=== PATIENT | male | born 1935 | race Caucasian/White ===

== ENCOUNTER 2018-07-18 19:14 | Inpatient (IN) | payer MEDICARE, OTHER ==
[~2018-07-18] VITALS: Ht 182.9 cm; Wt 79.8 kg
[2018-07-18] MEDS ORDERED: ASPIR 8181 MG PO (19:32)
[2018-07-18 19:35] LABS: BASOPHILS % 0.1 % (0.0-1.0); EOSINOPHILS # (AUTO) 0.1 (0.0-0.4); EOSINOPHILS % 0.8 % (0.0-6.0); HEMATOCRIT 32.3 % (38.2-49.6); HEMOGLOBIN 11.6 g/dL (14.0-18.0); LYMPHOCYTES # (AUTO) 0.3 (1.0-3.2); LYMPHOCYTES % 3.9 % (18.0-39.1); MEAN CORPUSCULAR HEMOGLOBIN 33.5 pg (28-32); MEAN CORPUSCULAR HGB CONC 35.9 g/dL (31-35); MEAN CORPUSCULAR VOLUME 93.4 fL (81-99); MONOCYTES # (AUTO) 1.7 (0.2-0.8); MONOCYTES % 19.4 % (4.4-11.3); NEUTROPHILS # (AUTO) 6.6 (2.1-6.9); NEUTROPHILS % 75.3 % (38.7-80.0); PLATELET COUNT 237 x10e3/uL (140-360); RED BLOOD COUNT 3.46 x10e6/uL (4.3-5.7); RED CELL DISTRIBUTION WIDTH 12.5 % (11.7-14.4)
[2018-07-18 19:55] LABS: BILIRUBIN,URINE NEGATIVE (NEGATIVE); CLARITY,URINE SL CLOUDY (CLEAR); COLOR,URINE YELLOW (YELLOW); KETONES,URINE NEGATIVE (NEGATIVE); LEUKOCYTE ESTERASE ,URINE NEGATIVE (NEGATIVE); NITRITE,URINE NEGATIVE (NEGATIVE); PROTEIN,URINE DIPSTICK TRACE (NEGATIVE); URINE UROBILINOGEN 0.2 mg/dL (0.2 - 1)
[2018-07-18 19:56] LABS: ALANINE AMINOTRANSFERASE 16 IU/L (0-55); ALBUMIN 2.7 g/dL (3.5-5.0); ALBUMIN/GLOBULIN RATIO 0.7 (0.8-2.0); ALKALINE PHOSPHATASE 90 IU/L (40-150); ANION GAP 12.9 mmol/L (8-16); BLOOD UREA NITROGEN 15 mg/dL (7-26); BUN/CREATININE RATIO 17 (6-25); CALCIUM 10.2 mg/dL (8.4-10.2); CARBON DIOXIDE 25 mmol/L (22-29); CHLORIDE 86 mmol/L (98-107); CREATINE KINASE 151 IU/L (30-200); CREATININE, SERUM 0.87 mg/dL (0.72-1.25); EST GLOMERULAR FILTRATION RATE > 60 ML/MIN (60-); GLUCOSE 99 mg/dL (74-118); POTASSIUM 3.9 mmol/L (3.5-5.1); SODIUM 120 mmol/L (136-145)
[2018-07-18 19:57] LABS: B-TYPE NATRIURETIC PEPTIDE2 174.5 pg/mL (0-100)
[2018-07-18 20:04] LABS: BACTERIA,URINE MODERATE /HPF
--- NOTE | 2018-07-18 20:09 | Diagnostic Imaging Report ---
ADDENDUM #1 Incidental finding: Moderate mucosal thickening in bilateral ethmoid, left sphenoid and visualized portion of maxillary sinuses. I have reviewed the images and otherwise agree with findings in the preliminary report. Signed by: Dr. Kristin Figueroa M.D. on 07/18/2018 9:13 PM ORIGINAL REPORT Exam: Noncontrast Head CT History: 83-year-old male with generalized weakness for 3 days Comparison studies: None Technique: Axial images were obtained from the skull base to the vertex. Coronal and sagittal reconstructions obtained from the axial data. Dose modulation, iterative reconstruction, and/or weight based adjustment of the mA/kV was utilized to reduce the radiation dose to as low as reasonably achievable. Findings: Scalp/skull: No abnormalities. No fractures, blastic or lytic lesions. Extra-axial spaces: No masses. No fluid collections. Brain sulci: Mildly prominent. Ventricles: Mildly prominent. No hydrocephalus. Parenchyma: Few scattered white matter hypodensities which are nonspecific, however likely represent microvascular ischemic changes.. No masses, hemorrhage, acute or chronic cortical vascular insults. Sellar/suprasellar region: No abnormalities Craniocervical junction: Patent foramen magnum. No Chiari one malformation. IMPRESSION: No acute abnormalities. Chronic findings: Mild generalized volume loss. Mild white matter microvascular ischemic changes. Report dictated by neuroradiology fellow. Final read to follow. Signed by: Ian Worley MD on 07/18/2018 8:06 PM
--- NOTE | 2018-07-18 20:32 | Diagnostic Imaging Report ---
A single frontal view of the chest. HISTORY: sob, weakness COMPARISON: None available. DISCUSSION: Portable technique, limits sensitivity of the exam. Overlying monitoring leads. Tubes/Lines: None Lungs and pleura: Low lung volumes result in bibasilar vascular crowding, accentuation of the pulmonary interstitial markings, central pulmonary vasculature, and the cardiac silhouette. Allowing for these limitations, the findings are as follows: Patchy interstitial and airspace opacities involving the left lower lung and right infrahilar region. No definite pleural effusion or pneumothorax is identified. Heart and mediastinum: The cardiomediastinal silhouette appears unremarkable. Bones and soft tissues: Appear unremarkable, given this limited exam. IMPRESSION: Left greater than right bibasilar interstitial and airspace opacities, correlate for multifocal pneumonia or aspiration. Signed by: Dr. Juilen Lemon D.O., M.M.M. on 07/18/2018 8:28 PM
--- OUTSIDE RECORDS SUMMARY | 2018-07-18 20:44 | XMS REPORT ---
Author Author [facility] Address Unknown Phone Unavailable Care Team Providers Care Substitute Bus Driver Name Role Phone Owen YEN Unavailable Unavailable Problems This patient has no known problems. Allergies, Adverse Reactions, Alerts This patient has no known allergies or adverse reactions. Medications This patient has no known medications. Results Test Description Test Time Test Comments Text Results Atomic Results Result Comments CHEST SINGLE (PORTABLE) 2018-07-18 20:14:00 [place] [address] Patient Name: ROBINSON RIZZO MR #: [id number] : 1935 Age/Sex: 83/M Req #: [id number] Adm Physician: Ordered by: GILBERTO YEN MD Report #: [id number] Location: ER Room/Bed: Procedure: [id number] DX/CHEST SINGLE (PORTABLE) Exam Date: 07/18/18 Exam Time: 1954 REPORT STATUS: Signed A single frontal view of the chest. HISTORY: sob, weakness COMPARISON: None available. DISCUSSION: Portable technique, limits sensitivity of the exam. Overlying monitoring leads. Tubes/Lines: None Lungs and pleura: Low lung volumes result in bibasilar vascular crowding, accentuation of the pulmonary interstitial markings, central pulmonary vasculature, and the cardiac silhouette. Allowing for these limitations, the findings are as follows: Patchy interstitial and airspace opacities involving the left lower lung and right infrahilar region. No definite pleural effusion or pneumothorax is identified. Heart and mediastinum: The cardiomediastinal silhouette appears unremarkable. Bones and soft tissues: Appear unremarkable, given this limited exam. IMPRESSION: Left greater than right bibasilar interstitial and airspace opacities, correlate for multifocal pneumonia or aspiration. Signed by: Dr. Ashley Lemon D.O., M.M.M. on 07/18/2018 8:28 PM Dictated By: ASHLEY LEMON DO 27 Transcribed By: RICKY on 07/18/182027 COPY TO: GILBERTO YEN MD CT BRAIN WO 2018-07-18 20:03:00 [place] [address] Patient Name: ROBINSON RIZZO MR #: [id number] : 1935 Age/Sex: 83/M Req #: [id number] Adm Physician: Ordered by: GILBERTO YEN MD Report #: [id number] Location: ER Room/Bed: Procedure: [id number] CT/CT BRAIN WO Exam Date: 07/18/18 Exam Time: 1944 REPORT STATUS: Signed Exam: Noncontrast Head CT History: 83-year-old male with generalized weakness for 3 days Comparison studies: None Technique: Axial images were obtained from the skull base to the vertex. Coronal and sagittal reconstructions obtained from the axial data. Dose modulation, iterative reconstruction, and/or weight based adjustment of the mA/kV was utilized to reduce the radiation dose to as low as reasonably achievable. Findings: Scalp/skull: No abnormalities. No fractures, blastic or lytic lesions. Extra-axial spaces: No masses. No fluid collections. Brain sulci: Mildly prominent. Ventricles: Mildly prominent. No hydrocephalus. Parenchyma: Few scattered white matter hypodensities which are nonspecific, however likely represent microvascular ischemic changes.. No masses, hemorrhage, acute or chronic cortical vascular insults. Sellar/suprasellar region: No abnormalities Craniocervical junction: Patent foramen magnum. No Chiari one malformation. IMPRESSION: No acute abnormalities. Chronic findings: Mild generalized volume loss. Mild white matter microvascular ischemic changes. Report dictated by neuroradiology fellow. Final read to follow. Signed by: Ian Worley MD on 07/18/2018 8:06 PM Dictated By: MINDA WORLEY MD 05 Transcribed By: RICKY on 07/18/182005 COPY TO: GILBERTO YEN MD
[2018-07-18] MEDS ORDERED: LEVOFLOXACIN 750MG/D5W 150ML IV SCH (20:45)
[2018-07-18] MEDS: ALBUTEROL SULF 0.083% NEB SOLN 3 ML NEB NEB SCH (20:45)
[2018-07-18] MEDS: LEVOFLOXACIN 750MG/D5W 150ML 150 ML IV SCH (21:01)
[2018-07-18 21:40] VITALS: BP 133/62
[2018-07-18 22:07] VITALS: BP 133/62
[2018-07-18] MEDS: SODIUM CHLORIDE 0.9% 1000ML 1,000 ML IV SCH (22:28)
[2018-07-18] MEDS: BENZONATATE 100 MG CAP PO PRN (22:40)
[2018-07-18] MEDS: ACETAMINOPHEN 325 MG TAB PO PRN (22:41)
[2018-07-19] VITALS (9 sets, daily range): BP systolic 92–138; BP diastolic 53–61
[2018-07-19] MEDS: ALBUTEROL SULF 0.083% NEB SOLN 3 ML NEB NEB SCH ×6 (00:30→20:02)
[2018-07-19] MEDS: IPRATROPIUM BROMIDE 0.02% 2.5 ML NEB NEB SCH ×4 (00:30→20:02)
--- NOTE | 2018-07-19 03:41 | NUR ---
Patient is upset he has not slept. Patient on IV fluid and has to urinate frequently. Patient does not want bed alarm on explained to patient he is a fall risk and the bed alarm must remain on. Patient is also upset with breathing treatment and says "all they do is make me cough more". Explained to patient he has pneumonia and breathing treatments are beneficial to his recovery. Will continue to educate patient.
[2018-07-19 05:16] LABS: BASOPHILS % 0.2 % (0.0-1.0); EOSINOPHILS # (AUTO) 0.1 (0.0-0.4); EOSINOPHILS % 1.4 % (0.0-6.0); HEMATOCRIT 30.6 % (38.2-49.6); HEMOGLOBIN 10.8 g/dL (14.0-18.0); LYMPHOCYTES # (AUTO) 0.5 (1.0-3.2); LYMPHOCYTES % 6.2 % (18.0-39.1); MEAN CORPUSCULAR HGB CONC 35.3 g/dL (31-35); MEAN CORPUSCULAR VOLUME 93.6 fL (81-99); MONOCYTES # (AUTO) 1.8 (0.2-0.8); MONOCYTES % 20.3 % (4.4-11.3); NEUTROPHILS # (AUTO) 6.2 (2.1-6.9); NEUTROPHILS % 71.3 % (38.7-80.0); PLATELET COUNT 228 x10e3/uL (140-360); RED BLOOD COUNT 3.27 x10e6/uL (4.3-5.7); RED CELL DISTRIBUTION WIDTH 12.3 % (11.7-14.4)
[2018-07-19 05:38] LABS: ALANINE AMINOTRANSFERASE 14 IU/L (0-55); ALBUMIN 2.3 g/dL (3.5-5.0); ALBUMIN/GLOBULIN RATIO 0.7 (0.8-2.0); ALKALINE PHOSPHATASE 80 IU/L (40-150); ANION GAP 10.5 mmol/L (8-16); BLOOD UREA NITROGEN 12 mg/dL (7-26); BUN/CREATININE RATIO 17 (6-25); CALCIUM 9.6 mg/dL (8.4-10.2); CARBON DIOXIDE 25 mmol/L (22-29); CHLORIDE 90 mmol/L (98-107); CREATININE, SERUM 0.72 mg/dL (0.72-1.25); EST GLOMERULAR FILTRATION RATE > 60 ML/MIN (60-); GLUCOSE 91 mg/dL (74-118); POTASSIUM 3.5 mmol/L (3.5-5.1); SODIUM 122 mmol/L (136-145)
[2018-07-19 05:51] LABS: CREATINE KINASE 152 IU/L (30-200)
[2018-07-19 07:14] LABS: EOSINOPHILS % (MANUAL) 1 % (0-7); LYMPHOCYTES % (MANUAL) 9 % (19-48); MONOCYTES % (MANUAL) 23 % (3.4-9.0); NEUTROPHILS % (MANUAL) 66 % (40-74); PLATELET ESTIMATE ADEQUATE
[2018-07-19 07:15] LABS: PLATELET MORPHOLOGY COMMENT FEW EDTA CLUMPING; RBC MORPHOLOGY COMMENT NORMAL; TOXIC GRANULATION SLIGHT
[2018-07-19] MEDS: SODIUM CHLORIDE 0.9% 1000ML 1,000 ML IV SCH ×2 (07:17→16:30)
[2018-07-19] MEDS: ASPIRIN 81 MG CHEW TAB PO SCH (08:47)
[2018-07-19] MEDS: METRONIDAZOLE 500MG/NS 100ML 100 ML IV SCH ×2 (11:04→17:22)
--- NOTE | 2018-07-19 11:50 | Diagnostic Imaging Report ---
EXAMINATION: CT scan of the chest without contrast. TECHNIQUE: Helical CT images of the chest were performed from the lung apices to the level of the adrenal glands. No intravenous contrast was administered Coronal and sagittal reformatted images were obtained. Dose modulation, iterative reconstruction, and/or weight based adjustment of the mA/kV was utilized to reduce the radiation dose to as low as reasonably achievable. COMPARISON: None. CLINICAL HISTORY:Pneumonia DISCUSSION: ABSENCE OF INTRAVENOUS CONTRAST DECREASES SENSITIVITY FOR DETECTION OF FOCAL LESIONS AND VASCULAR PATHOLOGY. LINES/TUBES: None. LUNGS AND AIRWAYS: Interlobular thickening. Bilateral lower lobe dependent consolidation/atelectasis and additional tree-in-bud opacities. Right upper lobe nodule image 44 measuring 1.1 cm. PLEURA: Small effusions, greater on the left. HEART AND MEDIASTINUM: The thyroid gland is normal. Coronary artery calcifications. LYMPH NODES: There is no mediastinal, hilar or axillary lymphadenopathy. ABDOMEN: Limited contrast-enhanced views of the upper abdomen show no abnormality within the visualized liver, spleen, pancreas, or kidneys. The adrenal glands are normal. BONES AND SOFT TISSUES: No acute bony abnormalities. IMPRESSION: Lower lobe dependent consolidations may reflect atelectasis or pneumonia. Additional tree-in-bud nodularity/bronchiolitis, may be infectious or secondary to aspiration. Small effusions, greater on the left. Right upper lobe 1.1 cm nodule Signed by: Dr. Paulino Mckeon M.D. on 07/19/2018 11:46 AM
[2018-07-19] MEDS: BENZONATATE 100 MG CAP PO PRN ×2 (12:34→20:23)
[2018-07-19 13:58] LABS: CREATINE KINASE MB 2.3 ng/mL (0-5.0)
[2018-07-19] MEDS: TOBRAMYCIN 0.3% (OPTH) 5 ML BTL OP SCH ×2 (16:58→20:23)
--- NOTE | 2018-07-19 17:20 | History and Physical ---
PRIMARY CARE PHYSICIAN: Dr. Reymundo Siddiqui. CHIEF COMPLAINT: Multifocal pneumonia. HISTORY: The patient is an 83-year-old male, complained of not feeling well for the past week, worse for the past three days with fever, chills, and a runny nose. The patient came in with chest x-ray showed multilobar pneumonia. The patient is admitted for pneumonia treatment. He has been placed on Levaquin. He is allergic to sulfa, penicillin, and morphine. PAST MEDICAL HISTORY: Coronary artery disease, hypertension. PAST SURGICAL HISTORY: Hernia repair. SOCIAL HISTORY: The patient does not smoke or use alcohol. No recreational drug use. ALLERGIES: MORPHINE, SULFA, AND PENICILLIN. HOME MEDICATIONS: Aspirin. PHYSICAL EXAMINATION: VITAL SIGNS: Temperature is 99, blood pressure 92/53, pulse rate 65, and respiration 18. GENERAL: The patient is not in acute distress. He is awake. HEENT: Normocephalic and atraumatic. Anicteric. NECK: Supple grossly. PULMONARY: Diminished breath sounds bilaterally with coarse rales. CARDIOVASCULAR: S1, S2. Regular rate and rhythm. ABDOMEN: Soft. Positive bowel sounds. Grossly nontender and nondistended. EXTREMITIES: No gross cyanosis or edema. NEUROLOGIC: No gross focal deficit. LABORATORY DATA: Sodium is 120, potassium is 3.9, chloride 86, bicarb 25, BUN is 15, creatinine 0.8, and glucose is 99. WBC is 8.7, hemoglobin 11.6, hematocrit 32.3, and platelet is 237. A brain CT, no acute abnormality. Chest x-ray showed left greater than right basilar interstitial and airspace opacity, correlate with multifocal pneumonia. IMPRESSION: 1. Sepsis without shock. 2. Multifocal pneumonia. 3. Multiple upper respiratory symptoms. 4. Hyponatremia secondary to sepsis and infection with over drinking of water instead of eating. PLAN: Continue with antibiotics. Normal saline. Continue with home medications if any. DVT prophylaxis. We will monitor the patient closely. We will obtain a CT scan to better document the extensiveness of the infection. MD VERONICA Culp/TIFFANIE /[id number]
[2018-07-19] MEDS: ENOXAPARIN SOD INJ 40 MG/0.4 ML SYR SC SCH (17:22)
--- NOTE | 2018-07-19 17:34 | NUR ---
patient encouraged to ambulate as tolerated. patient unsure wether he wants to stating he will then stating "maybe I''ll hold off." at bedside agreed to walk with him in hallway and patient agreed. noted ambulating in hallway with at side. nonslip socks on.
[2018-07-19] MEDS: LEVOFLOXACIN 750MG/D5W 150ML 150 ML IV SCH (20:23)
[2018-07-20] VITALS (8 sets, daily range): BP systolic 107–153; BP diastolic 56–71
[2018-07-20] MEDS: SODIUM CHLORIDE 0.9% 1000ML 1,000 ML IV SCH ×2 (01:07→12:35)
[2018-07-20] MEDS: METRONIDAZOLE 500MG/NS 100ML 100 ML IV SCH ×3 (01:38→16:22)
[2018-07-20] MEDS: ALBUTEROL SULF 0.083% NEB SOLN 3 ML NEB NEB SCH ×2 (03:19→07:44)
[2018-07-20] MEDS: IPRATROPIUM BROMIDE 0.02% 2.5 ML NEB NEB SCH ×2 (03:19→07:44)
[2018-07-20 05:32] LABS: BASOPHILS % 0.3 % (0.0-1.0); EOSINOPHILS # (AUTO) 0.1 (0.0-0.4); EOSINOPHILS % 1.5 % (0.0-6.0); LYMPHOCYTES # (AUTO) 0.5 (1.0-3.2); LYMPHOCYTES % 7.7 % (18.0-39.1); MEAN CORPUSCULAR HEMOGLOBIN 32.5 pg (28-32); MEAN CORPUSCULAR HGB CONC 34.5 g/dL (31-35); MEAN CORPUSCULAR VOLUME 94.2 fL (81-99); MONOCYTES % 14.5 % (4.4-11.3); NEUTROPHILS # (AUTO) 5.1 (2.1-6.9); NEUTROPHILS % 75.4 % (38.7-80.0); PLATELET COUNT 213 x10e3/uL (140-360); RED BLOOD COUNT 3.08 x10e6/uL (4.3-5.7); RED CELL DISTRIBUTION WIDTH 12.3 % (11.7-14.4)
[2018-07-20 05:58] LABS: ANION GAP 10.2 mmol/L (8-16); BLOOD UREA NITROGEN 10 mg/dL (7-26); BUN/CREATININE RATIO 15 (6-25); CALCIUM 8.8 mg/dL (8.4-10.2); CARBON DIOXIDE 22 mmol/L (22-29); CHLORIDE 91 mmol/L (98-107); CREATININE, SERUM 0.65 mg/dL (0.72-1.25); EST GLOMERULAR FILTRATION RATE > 60 ML/MIN (60-); GLUCOSE 98 mg/dL (74-118); POTASSIUM 3.2 mmol/L (3.5-5.1); SODIUM 120 mmol/L (136-145)
[2018-07-20] MEDS: TOBRAMYCIN 0.3% (OPTH) 5 ML BTL OP SCH ×3 (06:07→21:00)
[2018-07-20] MEDS: BENZONATATE 100 MG CAP PO PRN ×2 (06:07→10:32)
[2018-07-20 06:13] LABS: MAGNESIUM 1.7 MG/DL (1.3-2.1); PHOSPHORUS 2.8 MG/DL (2.3-4.7)
[2018-07-20 06:33] LABS: FOLATE 15.6 ng/mL (7.0-15.4)
[2018-07-20 06:35] LABS: THYROID STIMULATING HORMONE 1.312 uIU/mL (0.350-4.940)
--- NOTE | 2018-07-20 07:30 | NUR ---
PT IS SITTING UP IN CHAIR AND IS AT BEDSIDE. FLUIDS RUNNING THROUGH IV. IV SITE IS CLEAN AND INTACT. NO COMPLICATIONS TO IV SITE. PT ON RA, SKIN INTACT, URINAL AT BEDSIDE. CALL LIGHT WITHIN REACH.
[2018-07-20] MEDS ORDERED: ALBUTEROL/IPRATROPIUM 3 ML NEB NEB PRN (08:30)
--- NOTE | 2018-07-20 08:30 | NUR ---
DR. RILEY IN PT ROOM DISCUSSING PT HEALTH STATUS. DR. RILEY HAS CONSULTED DR. PALAFOX DUE TO CHEST X-RAY RESULTS.
[2018-07-20] MEDS: ASPIRIN 81 MG CHEW TAB PO SCH (08:35)
[2018-07-20] MEDS: LORATADINE/PSEUDOEPHEDRINE 24 HR SR TAB PO SCH (08:50)
[2018-07-20] MEDS ORDERED: GUAIFENESIN 600 MG TAB PO SCH (09:00)
[2018-07-20] MEDS ORDERED: MAGNESIUM SULFATE 2GM/50ML IV NR (09:00)
[2018-07-20] MEDS ORDERED: POTASSIUM CHLORIDE 10MEQ EA PO NR (09:00)
[2018-07-20 09:22] LABS: BLOOD UREA NITROGEN 10 mg/dL (7-26); GLUCOSE 97 mg/dL (74-118); OSMOLALITY,SERUM 243 mOsm/kg (278-305); SODIUM 121 mmol/L (136-145)
--- NOTE | 2018-07-20 09:30 | NUR ---
ENCOURAGED PT TO USED KLENEX TISSUE TO CLEAN EYE DRAINAGE INSTEAD OF USING HANDS. PT AGREED TO INTERVENTION.
--- NOTE | 2018-07-20 11:20 | NUR ---
URINE COLLECTED FOR OSMOLALITY SERUM TEST. INITIALED, DATED, AND TIMED. DROPPED OFF TO LAB FOR TESTING.
--- NOTE | 2018-07-20 11:30 | NUR ---
PT IN BED ON RA, AT BEDSIDE, NO S/S OF DISTRESS. SIDE RAILS UP X2, CALL UNGER WITHIN REACH, AND BED IN LOWEST POSITION.
--- NOTE | 2018-07-20 11:35 | NUR ---
DR. PALAFOX IN ROOM WITH PT DISCUSSING HEALTH STATUS/CXR RESULT.
--- NOTE | 2018-07-20 12:23 | Consultation ---
DATE OF CONSULTATION: Pulmonary Consultation REASON FOR THE CONSULT: Lung nodule and pneumonia. HISTORY OF PRESENT ILLNESS: Mr. Contreras is an 83-year-old male, who presented to the emergency room with complaints of altered mental status. The patient was found to be hyponatremic. He underwent a CT of the chest in the emergency room, which showed bibasilar pneumonia and lung nodule. He reports that he is choking on the food. He denies any sick contacts. He says the symptoms have been going on for almost a month and half to two where he has episodes of coughing. He has sinus drainage. He smoked only for 25 years of his life and he quit 42 years ago. He smoked a pack a day for 25 plus years. REVIEW OF SYSTEMS: GENERAL: Denies any fever or chills. HEAD: Denies any head trauma. ENT: Denies any earaches. CVS: Denies any chest pain. RESPIRATORY: Shortness of breath. GI: Denies any nausea or vomiting. Rest of the review of systems are negative except as in HPI. PAST MEDICAL HISTORY: None. PAST SURGICAL HISTORY: Hernia repair and tonsillectomy as a child. SOCIAL HISTORY: Smoker for 25 years, but quit 42 years ago. PHYSICAL EXAMINATION: VITAL SIGNS: Temperature 96.7, pulse of 60, blood pressure 128/59, respiratory rate of 18, and O2 saturation 94%. HEENT: Head is atraumatic and normocephalic. NECK: Supple. CHEST: Crackles bilaterally. HEART: S1 and S2 audible. ABDOMEN: Soft and nontender. EXTREMITIES: No pedal edema. NEUROLOGIC: Awake and alert. No focal neurologic deficit. LABORATORY DATA: Sodium 120, potassium 3.2, chloride 91, BUN 10, and creatinine 0.65. White count of 6.7, hemoglobin 10.0, and platelets 213. CT of the chest, I reviewed the images, it is showing bibasilar consolidation, also has tree-in-bud appearance in different areas of the lung. There is a lung nodule in the right upper lobe in lower segments as well. ASSESSMENT AND PLAN: Mr. Contreras is an 83-year-old male with cough, bibasilar consolidation, tree-in-bud appearance on the CT, also has a nodule which is 1.1 cm. Ex-smoker. Current problems: 1. Lung nodule which will need workup as an outpatient as in the presence of pneumonia cannot comment that if it is part of pneumonia or it is a separate nodule. If the nodule persists after eight weeks or so after the pneumonia is treated, then PET scan versus biopsy will be discussed with him. 2. Tree-in-bud appearance is on the CT chest, which in this context as patient is saying that he coughs when he eats could be due to aspiration. I will recommend swallowing evaluation. 3. IV antibiotics for pneumonia. The patient has been on Levaquin and Flagyl, which will be continued. 4. Hyponatremia management by primary team. 5. Continue the patient on nebulizer treatment. Discussed with the patient's at bedside in detail. MD BRANDIE Llanes/TIFFANIE /[id number]
[2018-07-20] MEDS: ALBUTEROL/IPRATROPIUM 3 ML NEB NEB SCH ×2 (14:00→18:45)
[2018-07-20] MEDS ORDERED: SODIUM CHLORIDE 0.9% 1000ML 1,000 ML ONE (14:07)
[2018-07-20] MEDS: ENOXAPARIN SOD INJ 40 MG/0.4 ML SYR SC SCH (16:22)
--- NOTE | 2018-07-20 18:13 | NUR ---
PT AND HIS WALKING DOWN THE HALLWAY. IV IS CLEAN AND INTACT. NO S/S OF DISTRESS.
--- NOTE | 2018-07-20 19:22 | NUR ---
patient has frequent urge to urinate with no success. 100-200ml at a time. Bladder scanned patient 287ml in bladder. patient attempt to urine while nurse in room and unsuccessful. Instructed patient to call nurse after next urination for PVR.
--- NOTE | 2018-07-20 19:45 | NUR ---
PVR 209 ml. call placed out to dr. holland.
--- NOTE | 2018-07-20 20:28 | NUR ---
second call placed to dr. holland, awaiting call back.
--- NOTE | 2018-07-20 20:54 | NUR ---
dr. holland returned call, 18fr fraga place. 450ml drained.
[2018-07-20] MEDS: LEVOFLOXACIN 750MG/D5W 150ML 150 ML IV SCH (21:00)
[2018-07-21] VITALS (9 sets, daily range): BP systolic 113–144; BP diastolic 57–75
[2018-07-21] MEDS: ALBUTEROL/IPRATROPIUM 3 ML NEB NEB SCH ×4 (00:31→19:45)
[2018-07-21] MEDS: METRONIDAZOLE 500MG/NS 100ML 100 ML IV SCH ×3 (02:07→17:38)
[2018-07-21] MEDS: SODIUM CHLORIDE 0.9% 1000ML 1,000 ML IV SCH (02:07)
[2018-07-21 05:08] LABS: BASOPHILS % 0.2 % (0.0-1.0); EOSINOPHILS # (AUTO) 0.2 (0.0-0.4); EOSINOPHILS % 3.1 % (0.0-6.0); HEMATOCRIT 26.9 % (38.2-49.6); HEMOGLOBIN 9.9 g/dL (14.0-18.0); LYMPHOCYTES # (AUTO) 0.5 (1.0-3.2); LYMPHOCYTES % 8.7 % (18.0-39.1); MEAN CORPUSCULAR HEMOGLOBIN 33.6 pg (28-32); MEAN CORPUSCULAR HGB CONC 36.8 g/dL (31-35); MEAN CORPUSCULAR VOLUME 91.2 fL (81-99); MONOCYTES % 17.2 % (4.4-11.3); NEUTROPHILS % 70.3 % (38.7-80.0); PLATELET COUNT 233 x10e3/uL (140-360); RED BLOOD COUNT 2.95 x10e6/uL (4.3-5.7)
[2018-07-21 05:29] LABS: ANION GAP 9.4 mmol/L (8-16); BLOOD UREA NITROGEN 7 mg/dL (7-26); BUN/CREATININE RATIO 10 (6-25); CALCIUM 8.7 mg/dL (8.4-10.2); CARBON DIOXIDE 23 mmol/L (22-29); CHLORIDE 90 mmol/L (98-107); CREATININE, SERUM 0.69 mg/dL (0.72-1.25); EST GLOMERULAR FILTRATION RATE > 60 ML/MIN (60-); GLUCOSE 105 mg/dL (74-118); POTASSIUM 3.4 mmol/L (3.5-5.1); SODIUM 119 mmol/L (136-145)
[2018-07-21 05:58] LABS: MAGNESIUM 1.3 MG/DL (1.3-2.1); PHOSPHORUS 2.6 MG/DL (2.3-4.7)
[2018-07-21] MEDS: TOBRAMYCIN 0.3% (OPTH) 5 ML BTL OP SCH ×3 (06:00→22:35)
[2018-07-21] MEDS: ASPIRIN 81 MG CHEW TAB PO SCH (08:27)
[2018-07-21] MEDS: LORATADINE/PSEUDOEPHEDRINE 24 HR SR TAB PO SCH (08:27)
[2018-07-21] MEDS ORDERED: FUROSEMIDE 20 MG TAB PO SCH (10:00)
[2018-07-21] MEDS ORDERED: FUROSEMIDE INJ 10 MG/ML 2 ML VIAL IV NR (10:00)
[2018-07-21] MEDS: SODIUM CHLORIDE 1 GM TAB PO SCH ×3 (10:20→21:54)
[2018-07-21] MEDS: POTASSIUM CHLORIDE 20 MEQ TAB CR PO SCH (10:20)
[2018-07-21] MEDS: TAMSULOSIN HCL 0.4 MG CAP PO SCH (17:12)
[2018-07-21] MEDS: FLUTICASONE PROPIONATE NASAL SPRAY NS SCH ×2 (17:30→21:00)
[2018-07-21] MEDS: ENOXAPARIN SOD INJ 40 MG/0.4 ML SYR SC SCH (17:37)
--- NOTE | 2018-07-21 19:14 | Consultation ---
DATE OF CONSULTATION: 07/21/2018 REASON FOR CONSULTATION: Hyponatremia. Thank you for allowing us to participate in Mr. Contreras's care. HISTORY OF PRESENT ILLNESS: This is an 83-year-old male, came with some increased confusion, fever, chills, and runny nose, which is worsening for the last 3 to 4 days prior to admission. He has been drinking lots of fluids. Sodium was found to be 120. Prior to that, he has no history of hyponatremia. Renal function was satisfactory. He apparently takes only an aspirin a day. He is not any thiazides or other diuretics or NSAIDs. PAST MEDICAL HISTORY: Hypertension and coronary artery disease. SOCIAL HISTORY: Does not smoke or abuse alcohol. FAMILY HISTORY: Hypertension. HOME MEDICATIONS: Only aspirin. ALLERGIES: MORPHINE, SULFA, AND PENICILLIN. REVIEW OF SYSTEMS: CONSTITUTIONAL: No fever or chills. CARDIAC: No angina or syncope. RESPIRATORY: He has some dyspnea earlier, currently better. VASCULAR: He has leg swelling. ENDOCRINE: He has leg swelling. Appetite was decreased. GI: No nausea or vomiting. NEURO: Some confusion was noted. However, today, he is able to tell me he is in the hospital, look at the chart board in his hospital room and tell me the date and year as well as month. PHYSICAL EXAMINATION: GENERAL: Sitting up, no distress. VITAL SIGNS: Temp 96.4, pulse 65, and blood pressure 129/57. EXTREMITIES: 1+ edema. CHEST: With scattered crackles particularly at the bases. NECK: Unable to see any JVD. ABDOMEN: Soft, nontender, liver palpable at the right costal margin. NEURO: He is alert. He is generally appropriate. He knows he is in the hospital. When I asked for the date he looked at the white board in the room and read off the date as July 29, 2018. He appears interacting fine with his family members. SKIN: Minimal bruising at IV site. LABS: Hemoglobin is 9.9, white count 5.75, and platelets 233. UA shows trace protein, 2+ blood, moderate bacteria. Sodium was 119, K 3.4, serum CO2 of 93, creatinine 0.69, and BUN 7. ASSESSMENT: 1. Hyponatremia likely from chf. 2. Additionally has increased ADH levels, possibly from the pneumonia. 4. Neurologic status appears to be reasonable at this time. 5. Lung nodule which may also explain increased ADH levels. 6. concern for aspiration. PLAN: We will try to slowly correct the sodium. In the beginning, we will put him on Lasix p.o., salt tablets, and give one dose of IV Lasix. If the sodium improves, we will gradually stop the salt tablets at this point. Breathing de la fuente, he seems to be compensating reasonably well. Avoid nephrotoxins such as NSAIDs. The other issue was whether there was some retention. At this point, I do not think 3% saline is necessary, but we will follow along. Recheck sodium in the afternoon. We will follow along. Thank you for allowing us to participate with Mr. Contreras's care. MD MEENA MockK/TIFFANIE /[id number]
--- NOTE | 2018-07-21 19:35 | NUR ---
RECEIVED PT IN BED AOX3 .T C/O COUGH .RESPIRATIONS ARE EVEN AND UNLABORED DENIES PAIN FAMILY AT THE BEDSIDE.CONTINUE TO MONITOR
[2018-07-21] MEDS: BENZONATATE 100 MG CAP PO PRN (20:00)
[2018-07-21] MEDS: ACETAMINOPHEN 325 MG TAB PO PRN (21:00)
[2018-07-21] MEDS: LEVOFLOXACIN 750MG/D5W 150ML 150 ML IV SCH (21:56)
[2018-07-22] VITALS (7 sets, daily range): BP systolic 122–146; BP diastolic 65–72
[2018-07-22] MEDS: ALBUTEROL/IPRATROPIUM 3 ML NEB NEB SCH ×5 (01:00→23:52)
[2018-07-22] MEDS: ACETAMINOPHEN 325 MG TAB PO PRN ×2 (01:31→06:32)
[2018-07-22] MEDS: METRONIDAZOLE 500MG/NS 100ML 100 ML IV SCH ×3 (02:22→17:49)
[2018-07-22 05:29] LABS: ANION GAP 8.4 mmol/L (8-16); BLOOD UREA NITROGEN 7 mg/dL (7-26); BUN/CREATININE RATIO 10 (6-25); CALCIUM 8.9 mg/dL (8.4-10.2); CARBON DIOXIDE 26 mmol/L (22-29); CHLORIDE 88 mmol/L (98-107); CREATININE, SERUM 0.72 mg/dL (0.72-1.25); EST GLOMERULAR FILTRATION RATE > 60 ML/MIN (60-); GLUCOSE 84 mg/dL (74-118); MAGNESIUM 1.5 MG/DL (1.3-2.1); POTASSIUM 3.4 mmol/L (3.5-5.1)
[2018-07-22 05:44] LABS: SODIUM 119 mmol/L (136-145)
--- NOTE | 2018-07-22 06:30 | NUR ---
PT C/O HEADACHE AND GIVEN TYLENOL .FAMILY AT THE BEDSIDE .CONTINUE TO MONITOR
[2018-07-22] MEDS: TOBRAMYCIN 0.3% (OPTH) 5 ML BTL OP SCH ×3 (06:31→22:10)
[2018-07-22] MEDS: LORATADINE/PSEUDOEPHEDRINE 24 HR SR TAB PO SCH (08:57)
[2018-07-22] MEDS: ASPIRIN 81 MG CHEW TAB PO SCH (08:57)
[2018-07-22] MEDS: POTASSIUM CHLORIDE 20 MEQ TAB CR PO SCH ×2 (08:58→10:53)
[2018-07-22] MEDS: SODIUM CHLORIDE 1 GM TAB PO SCH ×3 (08:58→20:59)
[2018-07-22] MEDS ORDERED: FUROSEMIDE 20 MG TAB PO SCH ×2 (09:00→17:00)
[2018-07-22] MEDS ORDERED: MAGNESIUM SULFATE 2GM/50ML IV ONE (09:00)
[2018-07-22] MEDS ORDERED: POTASSIUM CHLORIDE 10MEQ EA PO ONE (09:00)
[2018-07-22] MEDS ORDERED: MAGNESIUM SULFATE 2GM/50ML 50 ML IV ONE (09:15)
[2018-07-22] MEDS ORDERED: POTASSIUM PHOSPHATE 20 MM in SODIUM CHLORIDE 0.9% 250ML 250 ML IV ONE (09:30)
--- NOTE | 2018-07-22 09:48 | Diagnostic Imaging Report ---
Exam: Modified barium swallow History: Generalized weakness with difficulty swallowing Comparison: None available Findings: Modified barium swallow was performed in conjunction with speech pathology. There is intermittent shallow flash penetration with straw and cup sips of thin liquids. No aspiration is noted. Fluoroscopy time: 1.7 minutes Cumulative dose: 7.38 mGy Impression: 1. Intermittent flash penetration without evidence of aspiration. 2. Please see the full report provided by speech pathology. Signed by: Dr. Harish Leung DO on 07/22/2018 9:45 AM
--- NOTE | 2018-07-22 10:45 | NUR ---
Shi was removed. Will monitor urine output
[2018-07-22] MEDS: FLUTICASONE PROPIONATE NASAL SPRAY NS SCH ×2 (10:50→20:59)
--- NOTE | 2018-07-22 12:00 | NUR ---
Patient voided, was unable to measure due to patient missing urinal
--- NOTE | 2018-07-22 12:13 | Progress Note ---
DATE: 07/22/2018 SUBJECTIVE: Still swollen, overall feels better. OBJECTIVE: VITAL SIGNS: Temperature 96.5, pulse 65, and blood pressure 130/65. CHEST: Scattered rhonchi. EXTREMITIES: 1+ edema. NEUROLOGIC: Alert, appropriate skin bruising near IV site. LABORATORY DATA: Hemoglobin is 9.9. Sodium is 119, K of 3.4, serum CO2 of 26, creatinine 0.72, and BUN of 7. Urine osmolality is pending. ASSESSMENT: 1. Hyponatremia. 2. Fluid overload, satisfactory GFR. 3. Hypokalemia. PLAN: 1. Change to IV Lasix. Keep potassium replacement ongoing. A.m. chemistries. He already got potassium phosphate and magnesium sulfate this morning. 2. Keep fluid restricted. We will avoid nephrotoxins. 3. We will follow along. MD MEENA MockK/MODL /[id number]
--- NOTE | 2018-07-22 14:01 | NUR ---
Patient continues to void without any difficulty.
[2018-07-22] MEDS: TAMSULOSIN HCL 0.4 MG CAP PO SCH (17:49)
[2018-07-22] MEDS: ENOXAPARIN SOD INJ 40 MG/0.4 ML SYR SC SCH (17:49)
[2018-07-22] MEDS: FUROSEMIDE INJ 10 MG/ML 2 ML VIAL IV SCH (17:49)
[2018-07-22] MEDS ORDERED: BENZONATATE 100 MG CAP PO SCH (18:00)
[2018-07-22] MEDS ORDERED: BENZONATATE 100 MG CAP PO PRN (18:00)
[2018-07-22] MEDS: LEVOFLOXACIN 750MG/D5W 150ML 150 ML IV SCH (20:59)
[2018-07-23] VITALS (9 sets, daily range): BP systolic 93–130; BP diastolic 51–66
[2018-07-23] MEDS: METRONIDAZOLE 500MG/NS 100ML 100 ML IV SCH ×3 (02:32→18:15)
[2018-07-23] MEDS: FUROSEMIDE INJ 10 MG/ML 2 ML VIAL IV SCH ×2 (05:28→17:53)
[2018-07-23] MEDS: TOBRAMYCIN 0.3% (OPTH) 5 ML BTL OP SCH ×3 (05:28→21:42)
[2018-07-23 05:33] LABS: ANION GAP 8.9 mmol/L (8-16); BLOOD UREA NITROGEN 9 mg/dL (7-26); BUN/CREATININE RATIO 12 (6-25); CALCIUM 9.1 mg/dL (8.4-10.2); CARBON DIOXIDE 27 mmol/L (22-29); CHLORIDE 93 mmol/L (98-107); CREATININE, SERUM 0.74 mg/dL (0.72-1.25); EST GLOMERULAR FILTRATION RATE > 60 ML/MIN (60-); GLUCOSE 96 mg/dL (74-118); POTASSIUM 3.9 mmol/L (3.5-5.1); SODIUM 125 mmol/L (136-145)
[2018-07-23] MEDS: ALBUTEROL/IPRATROPIUM 3 ML NEB NEB SCH ×3 (06:15→19:30)
--- NOTE | 2018-07-23 07:00 | NUR ---
BEDSIDE SHIFT REPORT RECEIVED FROM GEM CARVER RN. PT DENIES NEEDS AT THIS TIME
[2018-07-23] MEDS: ASPIRIN 81 MG CHEW TAB PO SCH (08:37)
[2018-07-23] MEDS: LORATADINE/PSEUDOEPHEDRINE 24 HR SR TAB PO SCH (08:37)
[2018-07-23] MEDS: FLUTICASONE PROPIONATE NASAL SPRAY NS SCH ×2 (08:38→21:42)
[2018-07-23] MEDS: SODIUM CHLORIDE 1 GM TAB PO SCH ×3 (08:38→21:42)
[2018-07-23] MEDS: POTASSIUM CHLORIDE 20 MEQ TAB CR PO SCH (08:43)
--- NOTE | 2018-07-23 11:18 | Progress Note ---
DATE: 07/23/2018 SUBJECTIVE: Sodium coming up. Making good amounts of urine. Renal function is holding. He is net negative 1.3 L. OBJECTIVE: VITAL SIGNS: Temperature 96.8, pulse 99, blood pressure 110/61. CHEST: Minimal crackles at the bases, much improved from admission exam. EXTREMITIES: Trace to 1+ edema. SKIN: Varicose veins. LABS: Hemoglobin 9.9, sodium 125, creatinine 0.74, BUN 9. ASSESSMENT: 1. Hyponatremia. 2. Fluid overload, improving. 3. Hypertension, reasonable. PLAN: Continue IV Lasix. Recheck chemistries. Avoid nephrotoxins. Avoid NSAIDs. Keep fluid restricted. We will follow along. Jason Mena MD VKK/MODL /[id number]
--- NOTE | 2018-07-23 11:21 | NUR ---
IMM letter delivered and explained to pt and family at bedside. They verbalized understanding. Signed copy placed in chart. Copy given to pt's daughter at bedside.
--- NOTE | 2018-07-23 13:19 | NUR ---
PATIENT AND PATIENT REQUESTED LETTER FROM TO SEND TO COURT DUE TO ANTICIPATED MISSED COURT APPEARANCE FOR SATURDAY. DR. RILEY WROTE LETTER ON SCRIPT AND LETTER WAS SENT TO REQUESTED LAW FIRM : [employer] FAX: [phone] COPY OF LETTER AND CONFIRMATION FAX STAPLED AND GIVEN TO PATIENT. ORIGINAL LETTER PLACED IN CHART.
--- NOTE | 2018-07-23 13:23 | NUR ---
CM SPOKE TO PATIENT, PATIENT AND PATIENT CHILDREN AT BEDSIDE REGARDING HOME HEALTH ORDERS. PATIENT AND PATIENT FAMILY INFORMED OF HOME HEALTH SERVICES IN DETAIL AND AGREED TO HOME HEALTH SERVICES. PATIENT GIVEN IN NETWORK AND OUT OF NETWORK COMPANIES. PATIENT AND PATIENT CHOSE IN- NETWORK COMPANY [facility]. CLINICAL SENT TO [facility]. PENDING ACCEPTANCE. [facility] (P) [phone] (F) [phone] LIAISON: ELIEL MACK PATIENT AND PATIENT FAMILY INFORMED TO CALL CM IF THEY DO NOT HEAR ANYTHING FROM HOME HEALTH COMPANY 48 HOURS POST DISCHARGE. CM INFORMATION AND HOME HEALTH COMPANY INFO GIVEN TO PATIENT AND PATIENT FAMILY.
--- NOTE | 2018-07-23 13:27 | NUR ---
PATIENT DISCHARGE DISPOSITION: PATIENT DISCHARGING HOME WITH HOME HEALTH FOR CUSTODIAL EVAL AND PT/ OT SERVICES: [facility] (P) [phone] (F) [phone] HOME HEALTH LIAISON: ELIEL MACK [facility] ANIMAL TECHNICIAN: ELIEL CORTÉS [phone]. PLEASE CALL IF YOU DO NOT HEAR FROM HOME HEALTH COMPANY 48 HOURS POST DISCHARGE.
[2018-07-23] MEDS: ENOXAPARIN SOD INJ 40 MG/0.4 ML SYR SC SCH (17:53)
[2018-07-23] MEDS: TAMSULOSIN HCL 0.4 MG CAP PO SCH (17:53)
--- NOTE | 2018-07-23 19:00 | NUR ---
BEDSIDE SHIFT REPORT GIVEN TO ELECTRICAL CONTINUITY INSPECTOR RN. PT DENIES NEEDS AT THIS TIME.
[2018-07-23] MEDS: LEVOFLOXACIN 750MG/D5W 150ML 150 ML IV SCH (21:42)
--- NOTE | 2018-07-23 23:29 | NUR ---
PATIENT RESTING COMFORTABLY IN BED, NO RESPIRATORY DISTRESS OBSERVED AND HE DENIES PAIN. BED ALARM ON, CALL LIGHT WITHIN EASY REACH.
[2018-07-24] VITALS (7 sets, daily range): BP systolic 97–130; BP diastolic 50–62
[2018-07-24] MEDS: ALBUTEROL/IPRATROPIUM 3 ML NEB NEB SCH ×4 (00:30→19:20)
[2018-07-24] MEDS: METRONIDAZOLE 500MG/NS 100ML 100 ML IV SCH (03:10)
--- NOTE | 2018-07-24 03:11 | NUR ---
PATIENT IS ASLEEP, HE'S EASY TO AROUSE. NO RESPIRATORY DISTRESS OBSERVED, HE DENIES PAIN. URINAL AND CALL LIGHT WITHIN EASY REACH.
[2018-07-24 05:04] LABS: BASOPHILS % 0.4 % (0.0-1.0); EOSINOPHILS # (AUTO) 0.2 (0.0-0.4); HEMATOCRIT 30.9 % (38.2-49.6); HEMOGLOBIN 11.2 g/dL (14.0-18.0); LYMPHOCYTES # (AUTO) 0.5 (1.0-3.2); LYMPHOCYTES % 10.4 % (18.0-39.1); MEAN CORPUSCULAR HEMOGLOBIN 33.7 pg (28-32); MEAN CORPUSCULAR HGB CONC 36.2 g/dL (31-35); MEAN CORPUSCULAR VOLUME 93.1 fL (81-99); MONOCYTES # (AUTO) 0.8 (0.2-0.8); MONOCYTES % 16.9 % (4.4-11.3); NEUTROPHILS # (AUTO) 3.1 (2.1-6.9); NEUTROPHILS % 67.6 % (38.7-80.0); PLATELET COUNT 321 x10e3/uL (140-360); RED BLOOD COUNT 3.32 x10e6/uL (4.3-5.7); RED CELL DISTRIBUTION WIDTH 12.5 % (11.7-14.4)
[2018-07-24 05:27] LABS: ANION GAP 9.9 mmol/L (8-16); BLOOD UREA NITROGEN 12 mg/dL (7-26); BUN/CREATININE RATIO 14 (6-25); CALCIUM 9.5 mg/dL (8.4-10.2); CARBON DIOXIDE 27 mmol/L (22-29); CHLORIDE 92 mmol/L (98-107); CREATININE, SERUM 0.86 mg/dL (0.72-1.25); EST GLOMERULAR FILTRATION RATE > 60 ML/MIN (60-); GLUCOSE 89 mg/dL (74-118); MAGNESIUM 1.8 MG/DL (1.3-2.1); POTASSIUM 3.9 mmol/L (3.5-5.1); SODIUM 125 mmol/L (136-145)
[2018-07-24] MEDS: TOBRAMYCIN 0.3% (OPTH) 5 ML BTL OP SCH ×3 (06:40→21:49)
[2018-07-24] MEDS: FUROSEMIDE INJ 10 MG/ML 2 ML VIAL IV SCH (06:47)
--- NOTE | 2018-07-24 06:47 | NUR ---
BLOOD PRESSURE REASSESSED PRIOR TO ADMINISTERING IV LASIX, RESULT WAS 123/66, HEART RATE 78. PATIENT CONDITION REMAINS STABLE WITHOUT ACUTE DISTRESS AND HE DENIES PAIN.
--- NOTE | 2018-07-24 07:00 | NUR ---
BEDSIDE SHIFT REPORT RECEIVED FROM PRINTING TABLE HAND RN. PT DENIES NEEDS AT THIS TIME
[2018-07-24] MEDS: FLUTICASONE PROPIONATE NASAL SPRAY NS SCH ×2 (09:00→21:49)
[2018-07-24] MEDS: SODIUM CHLORIDE 1 GM TAB PO SCH ×3 (09:13→21:49)
[2018-07-24] MEDS: ASPIRIN 81 MG CHEW TAB PO SCH (09:13)
[2018-07-24] MEDS: LORATADINE/PSEUDOEPHEDRINE 24 HR SR TAB PO SCH (09:14)
[2018-07-24] MEDS: POTASSIUM CHLORIDE 20 MEQ TAB CR PO SCH (09:19)
[2018-07-24] MEDS ORDERED: LEVOFLOXACIN 250 MG TAB PO SCH (09:30)
--- NOTE | 2018-07-24 11:43 | Progress Note ---
DATE: 07/24/2018 SUBJECTIVE: He feels okay. Blood pressure was slightly low, but he denies any weakness or dizziness. He is not on any antihypertensives, but because of his fluid overload, we would diurese him quite a bit. Echocardiogram is showing some LVH, ejection fraction about 59%, normal diastolic filling pattern for the age. He is not on any NSAIDs. Weight is down about 11 pounds or so in the last 2 to 3 days. OBJECTIVE: GENERAL: Sitting up. No distress. VITAL SIGNS: Temperature 95.9, pulse 81, blood pressure 100/56. CHEST: Now is clear. EXTREMITIES: Trace to 1+ edema. ABDOMEN: Benign. LABORATORY DATA: Sodium is 125 that is stable. Urine osmolality was elevated consistent with ADH effect. Creatinine 0.86, BUN of 12. ASSESSMENT: 1. Hyponatremia. Fluid overload, unclear if he has any heart failure. The echo at least suggests otherwise. 2. Fluid volume overload, improving. 3. Low blood pressure, relatively. PLAN: Stop IV Lasix, changed to p.o. Lasix. Keep fluid-restricted, a.m. chemistries. We will follow along. MD MEENA MockK/TIFFANIE /[id number]
--- NOTE | 2018-07-24 16:29 | NUR ---
Nutrition LOS Note RD Recommendation(s) for Physician / Nutrition Prescription: continue with diet as prescribed Plan of Care:Patient has been screened and assessed for nutrition risk. At this time, the patient does not pose any nutrition risk. No further nutrition intervention is warranted at this time. Will re-evaluate if consulted by medical staff. Nutrition reason for involvement: LOS Primary Dx: hyponatremia, fluids overload, low blood pressure PMH: CAD, HTN RD Assessment: (07/24) 83yo M, who was admitted for PNA. Currently on PO lasix and fluids restriction for volume overload. Visited pt in the room. Pt reported good appetite without any nausea or vomiting. Pt tolerating current diet texture. Verified gluten intolerance with pt. Pt denied any weight loss or decreased PO intake [employer]. Current diet is adequate and appropriate. Weight stable. Diet order: cardiac/ gluten free/ mechanical soft/ chopped Malnutrition Evaluation (07/24/2018) The patient does not meet criteria for a specified degree of malnutrition at this time. Will re-evaluate at follow-up as appropriate. Nutrition Care Level: Low By Elsi Gotti, MS, RD, LD
[2018-07-24] MEDS: TAMSULOSIN HCL 0.4 MG CAP PO SCH (16:39)
[2018-07-24] MEDS: ENOXAPARIN SOD INJ 40 MG/0.4 ML SYR SC SCH (16:39)
--- NOTE | 2018-07-24 19:00 | NUR ---
BEDSIDE SHIFT REPORT GIVEN TO CLAY ARTISAN RN. PT DENIED FURTHER NEEDS.
--- NOTE | 2018-07-24 20:40 | NUR ---
PATIENT SITTING AT THE SIDE OF THE BED, NO DISTRESS OBSERVED. HE AMBULATES IN THE ROOM WITH GAIT STEADY HOWEVER HE'S ENCOURAGED TO USE THE ROLLING WALKER WHILE AMBULATING.
[2018-07-25 00:41] VITALS: BP 170/66
[2018-07-25] MEDS: ALBUTEROL/IPRATROPIUM 3 ML NEB NEB SCH ×2 (01:30→07:12)
--- NOTE | 2018-07-25 02:40 | NUR ---
WALKING ROUNDS MADE, PATIENT RECEIVING BREATHING TREATMENT. NO DISTRESS OBSERVED, CALL LIGHT AND URINAL WITHIN EASY REACH.
[2018-07-25 04:00] VITALS: BP 137/61
[2018-07-25 05:35] LABS: ANION GAP 9.6 mmol/L (8-16); BLOOD UREA NITROGEN 14 mg/dL (7-26); BUN/CREATININE RATIO 18 (6-25); CALCIUM 9.8 mg/dL (8.4-10.2); CARBON DIOXIDE 28 mmol/L (22-29); CHLORIDE 96 mmol/L (98-107); CREATININE, SERUM 0.78 mg/dL (0.72-1.25); EST GLOMERULAR FILTRATION RATE > 60 ML/MIN (60-); GLUCOSE 89 mg/dL (74-118); POTASSIUM 3.6 mmol/L (3.5-5.1); SODIUM 130 mmol/L (136-145)
[2018-07-25] MEDS: TOBRAMYCIN 0.3% (OPTH) 5 ML BTL OP SCH (06:25)
[2018-07-25] MEDS ORDERED: LEVOFLOXACIN 250 MG TAB PO SCH (08:00)
[2018-07-25] MEDS: ASPIRIN 81 MG CHEW TAB PO SCH (08:27)
[2018-07-25] MEDS: LORATADINE/PSEUDOEPHEDRINE 24 HR SR TAB PO SCH (08:27)
[2018-07-25] MEDS: POTASSIUM CHLORIDE 20 MEQ TAB CR PO SCH (08:27)
[2018-07-25] MEDS: FLUTICASONE PROPIONATE NASAL SPRAY NS SCH (08:27)
[2018-07-25 08:36] VITALS: BP 137/61
[2018-07-25] MEDS ORDERED: SODIUM CHLORIDE 1 GM TAB PO SCH (09:00)
[2018-07-25] MEDS ORDERED: FUROSEMIDE 20 MG TAB PO SCH (09:00)
[2018-07-25 09:30] VITALS: BP 111/56
--- NOTE | 2018-07-25 12:39 | NUR ---
IMM letter delivered and reminded pt of his Medicare Rights. He verbalized understanding and stated that he was ready to go home. Signed copy placed in chart. Copy given to pt.
[2018-07-25] MEDS ORDERED: TESSALON PERLE100 MG PO (13:57)
[2018-07-25] MEDS ORDERED: LEVAQUIN500 MG PO (13:57)
[2018-07-25] MEDS ORDERED: SODIUM CHLORIDE1 GM PO (13:58)
[2018-07-25] MEDS ORDERED: PROAIR HFA INH8.5 GM INH (13:58)
[2018-07-25] MEDS ORDERED: CLARITIN10 MG PO (13:59)
[2018-07-25] MEDS ORDERED: SINGULAIR10 MG PO (14:00)
[2018-07-25] MEDS ORDERED: LASIX20 MG PO (14:01)
--- NOTE | 2018-07-25 15:20 | NUR ---
IV to right FA was removed with tip intact.
--- NOTE | 2018-07-25 15:25 | NUR ---
Discharge instructions and prescriptions given to the patient and his and daughter. They verbalized understanding,
--- NOTE | 2018-07-25 18:10 | Progress Note ---
DATE: 07/25/2018 SUBJECTIVE: He feels okay. Swelling of improved. OBJECTIVE: GENERAL: No distress. VITAL SIGNS: Temperature 97.6, pulse 81, blood pressure 111/56. CHEST: Clear. EXTREMITIES: Trace to 1+ edema. LABORATORY DATA: Hemoglobin is 11.2. Sodium is up to 130, K of 3.6, creatinine 0.8, BUN 14. 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 PLAN: Lasix, we will cut down. Cut down the salt tablets to once a day. He is fluid restricted from Renal standpoint, may go home as well as we can follow up. Chemistries next week at Dr. Siddiqui's office. I explained this in detail. We will follow along. MD NADER Mock/TIFFANIE /[id number]
--- NOTE | 2018-07-26 02:23 | Discharge Summary ---
PRIMARY CARE PHYSICIAN: Dr. Reymundo Siddiqui. CONSULTANTS: 1. Dr. René Rascon. 2. Dr. John Siegel. 3. Dr. Mulu Singleton. 4. Dr. Tj Perez. FINAL DIAGNOSES: 1. Multilobar pneumonia. 2. Right upper lobe 1.1 cm nodule. The patient was seen by Dr. René Rascon. The patient will need PET scan as an outpatient. 3. 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 4. Upper respiratory infection. 5. Enlarged prostate, benign prostatic hypertrophy. SUMMARY: The patient is a pleasant 83-year-old male, came in with generalized weakness and hyponatremia. CT scan showed consolidation in the lower lobe. The patient also had reflect atelectasis. Incidental finding of right upper lobe 1.[address] René Rascon consulted. The patient has also had very low sodium level, multifactorial. The patient was over drinking of water because he was sick, but also importantly, the patient has the lung nodule. The patient will have a PET scan as an outpatient on recommendation. Too small for biopsy. On admission, his sodium level was 119. His sodium level now is 130. He does have other workup done. His serum osmolality was 243, urine osmolality was 323, and his urine random sodium was 40. The patient was seen by Dr. Mena. Evaluation was made. Sodium tablet was given, normal saline was given, but then subsequently discontinued, and Lasix was given as well. His sodium level now is much improved. It is stable at 130. The patient is otherwise stable at this time. Vital signs stable. Blood pressure systolic 111/56, pulse rate 81, respirations 18. The patient was discharged home with the following instructions: 1. He need to follow up with Dr. René Rascon for his PET scan as an outpatient for the 1.1 cm nodule. 2. Follow up with Dr. John Siegel for the enlarged prostate. 3. Follow up with Dr. Mena for his sodium level. The patient will need to follow up with his family doctor for referral to those particular three specialists. DISCHARGE MEDICATIONS: As follows: Flonase nasal spray one spray b.i.d., Claritin 10 mg daily, Singulair 10 mg at bedtime, Lasix 20 mg daily, potassium 10 mEq daily, Tessalon Perles 100 mg q.6 p.r.n. for cough, Levaquin 250 mg daily for 5 days, ProAir HFA two puffs q.6 hours as needed for short of breath, sodium chloride 1 g daily. Again, the patient is stable, discharged home. Follow up with physician as instructed. MD VERONICA Culp/TIFFANIE /[id number]
== END 2018-07-25 15:40 | disposition home or self-care (01) | DRG 871 ==
LOC: ER 19:14 → ERHOLD 20:41 → MED/SURG2 21:40
PROVIDERS: ADMIT Internal Medicine; ATTEND Internal Medicine
DX: A41.9 Sepsis, unspecified organism (principal); J18.9 Pneumonia, unspecified organism; E22.2 Syndrome of inappropriate secretion of antidiuretic hormone; N40.0 Benign prostatic hyperplasia without lower urinary tract symptoms
CPT/HCPCS: 36415; 70450; 71045; 71250; 74230; 80048; 80053; 81001; 82550; 82553; 82607; 82746; 82947; 83605; 83735; 83880; 83935; 84100; 84295; 84300; 84443; 84484; 84520; 85025; 87040; 87086; 87400; 93005; 93306; 94640; 96367; 96376; 97139; 99284; J1650; J1940; J3475; J7030; J7050

== ENCOUNTER 2021-01-13 07:45 | Inpatient (IN) | payer MEDICARE, OTHER ==
[2021-01-11 12:42] LABS: BASOPHILS % 0.3 % (0.0-1.0); EOSINOPHILS # (AUTO) 0.1 (0.0-0.4); EOSINOPHILS % 3.6 % (0.0-6.0); HEMATOCRIT 40.6 % (38.2-49.6); HEMOGLOBIN 13.2 g/dL (14.0-18.0); LYMPHOCYTES # (AUTO) 0.5 (1.0-3.2); LYMPHOCYTES % 11.9 % (18.0-39.1); MEAN CORPUSCULAR HEMOGLOBIN 33.2 pg (28-32); MEAN CORPUSCULAR HGB CONC 32.5 g/dL (31-35); MEAN CORPUSCULAR VOLUME 102.3 fL (81-99); MONOCYTES # (AUTO) 0.6 (0.2-0.8); MONOCYTES % 15.2 % (4.4-11.3); NEUTROPHILS # (AUTO) 2.7 (2.1-6.9); NEUTROPHILS % 68.7 % (38.7-80.0); PLATELET COUNT 223 x10e3/uL (140-360); RED BLOOD COUNT 3.97 x10e6/uL (4.3-5.7)
[2021-01-11 13:01] LABS: ANION GAP 10.2 mmol/L (8-16); CREATININE, SERUM 0.94 mg/dL (0.72-1.25); POTASSIUM 4.2 mmol/L (3.5-5.1)
[~2021-01-13] VITALS: Ht 182.9 cm; Wt 79.8 kg
[~2021-01-13 07:45] MED LIST: ASPIR 8181 MG PO; CLARITIN10 MG PO; LASIX20 MG PO; LEVAQUIN500 MG PO; PROAIR HFA INH8.5 GM INH; SINGULAIR10 MG PO; SODIUM CHLORIDE1 GM PO; TESSALON PERLE100 MG PO
[2021-01-13] MEDS ORDERED: SODIUM CHLORIDE 0.9% 1000ML 1,000 ML ONE (08:36)
[2021-01-13] MEDS ORDERED: LEVOFLOXACIN 500MG/D5W 100ML 100 ML IV ONE (08:36)
[2021-01-13] MEDS ORDERED: GENTAMICIN 80MG/NS 100 ML 200 ML IV ONE (08:36)
[2021-01-13] MEDS ORDERED: IOPAMIDOL 300MG/ML 50ML INFUS..BTL IV ONE (09:49)
[2021-01-13] MEDS ORDERED: BELLADONNA/OPIUM 30 MG SUPP RC ONE (09:49)
[2021-01-13] MEDS ORDERED: DIPHENHYDRAMINE HCL 25 MG CAP PO PRN (12:00)
[2021-01-13] MEDS ORDERED: ACETAMINOPHEN 1000 MG/100 ML IV PRN (12:00)
[2021-01-13] MEDS ORDERED: TRAMADOL HCL 50 MG TAB PO PRN (12:00)
[2021-01-13] MEDS ORDERED: ONDANSETRON HCL INJ 2MG/ML 2ML 2 MG/ML VIAL IV PRN (12:00)
[2021-01-13] MEDS ORDERED: FENTANYL CITRATE/PF 100MCG/2 ML INJ ONE ×2 (12:19→13:59)
[2021-01-13 12:24] LABS: BASOPHILS % 0.2 % (0.0-1.0); EOSINOPHILS # (AUTO) 0.1 (0.0-0.4); EOSINOPHILS % 1.2 % (0.0-6.0); HEMATOCRIT 38.4 % (38.2-49.6); HEMOGLOBIN 12.4 g/dL (14.0-18.0); LYMPHOCYTES # (AUTO) 0.6 (1.0-3.2); LYMPHOCYTES % 7.1 % (18.0-39.1); MEAN CORPUSCULAR HEMOGLOBIN 33.4 pg (28-32); MEAN CORPUSCULAR HGB CONC 32.3 g/dL (31-35); MEAN CORPUSCULAR VOLUME 103.5 fL (81-99); MONOCYTES # (AUTO) 0.5 (0.2-0.8); MONOCYTES % 6.1 % (4.4-11.3); NEUTROPHILS # (AUTO) 7.4 (2.1-6.9); NEUTROPHILS % 85.2 % (38.7-80.0); PLATELET COUNT 197 x10e3/uL (140-360); RED BLOOD COUNT 3.71 x10e6/uL (4.3-5.7); RED CELL DISTRIBUTION WIDTH 13.1 % (11.7-14.4)
[2021-01-13 12:42] LABS: ANION GAP 11.4 mmol/L (8-16); CALCIUM 8.8 mg/dL (8.4-10.2); CREATININE, SERUM 0.85 mg/dL (0.72-1.25); POTASSIUM 4.4 mmol/L (3.5-5.1)
[2021-01-13 12:57] VITALS: BP 148/75
[2021-01-13 13:07] VITALS: BP 143/88
[2021-01-13 13:15] VITALS: BP 143/88
[2021-01-13] MEDS ORDERED: GLYCOPYRROLATE INJ 0.2 MG/ML VIAL ONE (13:39)
[2021-01-13] MEDS ORDERED: DEXAMETHASONE SOD PHOS INJ 4 MG/ML SDV ONE (13:39)
[2021-01-13] MEDS ORDERED: ONDANSETRON HCL INJ 2MG/ML 2ML 2 MG/ML VIAL ONE (13:39)
[2021-01-13] MEDS ORDERED: LIDOCAINE HCL 2% LOCAL INJ 5 ML SDV VIAL INJ ONE (13:39)
[2021-01-13] MEDS ORDERED: SEVOFLURANE INHAL SOLN 250 ML PEN BTL ONE (13:39)
[2021-01-13] MEDS ORDERED: POVIDONE IODINE 0.05% 0.05 % ML PO ONE (13:39)
[2021-01-13] MEDS ORDERED: PROPOFOL IV EMULSION 10 MG/ML 20 ML VIAL ONE (13:39)
[2021-01-13] MEDS: B&O 60MG R/S 60 MG SUPP PR PRN (13:42)
[2021-01-13] MEDS: D5.45%NS/KCL 20MEQ 1,000 ML IV SCH (14:15)
[2021-01-13 17:00] VITALS: BP 139/82
[2021-01-13] MEDS: DOCUSATE SODIUM 100 MG CAP PO SCH (17:04)
[2021-01-13] MEDS: PHENAZOPYRIDINE HCL 100 MG TAB PO PRN (18:03)
[2021-01-13 20:00] VITALS: BP 123/71
[2021-01-14] VITALS (7 sets, daily range): BP systolic 102–140; BP diastolic 50–71
[2021-01-14] MEDS: D5.45%NS/KCL 20MEQ 1,000 ML IV SCH (02:24)
[2021-01-14 06:39] LABS: BASOPHILS % 0.2 % (0.0-1.0); EOSINOPHILS # (AUTO) 0.1 (0.0-0.4); EOSINOPHILS % 1.3 % (0.0-6.0); HEMATOCRIT 37.6 % (38.2-49.6); HEMOGLOBIN 12.4 g/dL (14.0-18.0); LYMPHOCYTES # (AUTO) 0.7 (1.0-3.2); LYMPHOCYTES % 10.8 % (18.0-39.1); MEAN CORPUSCULAR HEMOGLOBIN 33.6 pg (28-32); MEAN CORPUSCULAR VOLUME 101.9 fL (81-99); MONOCYTES # (AUTO) 1.2 (0.2-0.8); MONOCYTES % 18.6 % (4.4-11.3); NEUTROPHILS # (AUTO) 4.4 (2.1-6.9); NEUTROPHILS % 68.9 % (38.7-80.0); PLATELET COUNT 174 x10e3/uL (140-360); RED BLOOD COUNT 3.69 x10e6/uL (4.3-5.7); RED CELL DISTRIBUTION WIDTH 13.1 % (11.7-14.4)
[2021-01-14 07:10] LABS: ANION GAP 11.4 mmol/L (8-16); CALCIUM 8.5 mg/dL (8.4-10.2); CREATININE, SERUM 0.78 mg/dL (0.72-1.25); POTASSIUM 4.4 mmol/L (3.5-5.1)
[2021-01-14] MEDS: LEVOFLOXACIN 250 MG TAB PO SCH (08:23)
[2021-01-14] MEDS: DOCUSATE SODIUM 100 MG CAP PO SCH ×2 (08:23→16:50)
[2021-01-14] MEDS ORDERED: FUROSEMIDE INJ 10 MG/ML 2 ML VIAL IV ONE (10:00)
[2021-01-14] MEDS ORDERED: MAGNESIUM HYDROXIDE 30 ML UDC PO PRN (10:15)
[2021-01-14] MEDS ORDERED: BISACODYL 10 MG SUPP PR PRN (10:15)
[2021-01-14] MEDS: SODIUM CHLORIDE 0.9% 1000ML 1,000 ML IV SCH (10:24)
[2021-01-14] MEDS: SENNA-S TABLET PO SCH ×2 (10:24→16:50)
[2021-01-15] VITALS (10 sets, daily range): BP systolic 120–164; BP diastolic 64–87
[2021-01-15] MEDS: SODIUM CHLORIDE 0.9% 1000ML 1,000 ML IV SCH ×3 (00:07→16:57)
[2021-01-15] MEDS: PHENAZOPYRIDINE HCL 100 MG TAB PO PRN (05:38)
[2021-01-15] MEDS: B&O 60MG R/S 60 MG SUPP PR PRN (06:18)
[2021-01-15 06:20] LABS: BASOPHILS % 0.2 % (0.0-1.0); EOSINOPHILS # (AUTO) 0.2 (0.0-0.4); EOSINOPHILS % 4.1 % (0.0-6.0); HEMATOCRIT 40.1 % (38.2-49.6); HEMOGLOBIN 13.2 g/dL (14.0-18.0); LYMPHOCYTES # (AUTO) 0.6 (1.0-3.2); LYMPHOCYTES % 10.3 % (18.0-39.1); MEAN CORPUSCULAR HEMOGLOBIN 33.4 pg (28-32); MEAN CORPUSCULAR HGB CONC 32.9 g/dL (31-35); MEAN CORPUSCULAR VOLUME 101.5 fL (81-99); MONOCYTES # (AUTO) 0.9 (0.2-0.8); MONOCYTES % 17.1 % (4.4-11.3); NEUTROPHILS # (AUTO) 3.7 (2.1-6.9); NEUTROPHILS % 68.1 % (38.7-80.0); PLATELET COUNT 160 x10e3/uL (140-360); RED BLOOD COUNT 3.95 x10e6/uL (4.3-5.7)
[2021-01-15 06:36] LABS: CALCIUM 9.4 mg/dL (8.4-10.2); CREATININE, SERUM 0.83 mg/dL (0.72-1.25)
[2021-01-15] MEDS: SENNA-S TABLET PO SCH ×2 (08:36→15:51)
[2021-01-15] MEDS: LEVOFLOXACIN 250 MG TAB PO SCH (08:36)
[2021-01-15] MEDS: DOCUSATE SODIUM 100 MG CAP PO SCH ×2 (08:36→15:51)
[2021-01-16] VITALS (8 sets, daily range): BP systolic 113–156; BP diastolic 63–82
[2021-01-16 06:58] LABS: BASOPHILS % 0.1 % (0.0-1.0); EOSINOPHILS # (AUTO) 0.1 (0.0-0.4); EOSINOPHILS % 1.8 % (0.0-6.0); HEMATOCRIT 39.4 % (38.2-49.6); HEMOGLOBIN 13.2 g/dL (14.0-18.0); LYMPHOCYTES # (AUTO) 0.3 (1.0-3.2); LYMPHOCYTES % 4.8 % (18.0-39.1); MEAN CORPUSCULAR HEMOGLOBIN 33.3 pg (28-32); MEAN CORPUSCULAR HGB CONC 33.5 g/dL (31-35); MEAN CORPUSCULAR VOLUME 99.5 fL (81-99); MONOCYTES # (AUTO) 1.1 (0.2-0.8); MONOCYTES % 15.5 % (4.4-11.3); NEUTROPHILS # (AUTO) 5.4 (2.1-6.9); NEUTROPHILS % 77.5 % (38.7-80.0); PLATELET COUNT 154 x10e3/uL (140-360); RED BLOOD COUNT 3.96 x10e6/uL (4.3-5.7)
[2021-01-16 07:17] LABS: ANION GAP 13.6 mmol/L (8-16); CALCIUM 9.3 mg/dL (8.4-10.2); CREATININE, SERUM 0.78 mg/dL (0.72-1.25); POTASSIUM 3.6 mmol/L (3.5-5.1)
[2021-01-16] MEDS: SODIUM CHLORIDE 0.9% 1000ML 1,000 ML IV SCH ×2 (08:35→20:37)
[2021-01-16] MEDS: LEVOFLOXACIN 250 MG TAB PO SCH (08:36)
[2021-01-16] MEDS: SENNA-S TABLET PO SCH ×2 (08:36→16:52)
[2021-01-16] MEDS: DOCUSATE SODIUM 100 MG CAP PO SCH ×2 (08:36→16:52)
[2021-01-16] MEDS ORDERED: LEVOFLOXACIN250 MG PO (10:29)
[2021-01-16] MEDS ORDERED: ONDANSETRON HCL 4 MG ORAL DISINTEGRATING TAB PO PRN (13:00)
[2021-01-16] MEDS: B&O 60MG R/S 60 MG SUPP PR PRN (14:30)
[2021-01-16] MEDS: PHENAZOPYRIDINE HCL 100 MG TAB PO PRN (14:30)
[2021-01-17 00:10] VITALS: BP 131/75
[2021-01-17 04:20] VITALS: BP 138/75
[2021-01-17 06:06] LABS: BASOPHILS % 0.1 % (0.0-1.0); EOSINOPHILS # (AUTO) 0.2 (0.0-0.4); LYMPHOCYTES # (AUTO) 0.4 (1.0-3.2); LYMPHOCYTES % 5.4 % (18.0-39.1); MEAN CORPUSCULAR HEMOGLOBIN 33.1 pg (28-32); MEAN CORPUSCULAR HGB CONC 33.3 g/dL (31-35); MEAN CORPUSCULAR VOLUME 99.2 fL (81-99); MONOCYTES # (AUTO) 1.2 (0.2-0.8); MONOCYTES % 16.4 % (4.4-11.3); NEUTROPHILS # (AUTO) 5.6 (2.1-6.9); NEUTROPHILS % 75.8 % (38.7-80.0); PLATELET COUNT 139 x10e3/uL (140-360); RED BLOOD COUNT 3.63 x10e6/uL (4.3-5.7)
[2021-01-17 06:10] LABS: ANION GAP 12.6 mmol/L (8-16); CALCIUM 8.3 mg/dL (8.4-10.2); CREATININE, SERUM 0.79 mg/dL (0.72-1.25); POTASSIUM 3.6 mmol/L (3.5-5.1)
[2021-01-17 07:18] VITALS: BP 140/75
[2021-01-17 07:51] VITALS: BP 140/75
[2021-01-17] MEDS: LEVOFLOXACIN 250 MG TAB PO SCH (09:09)
[2021-01-17] MEDS: SENNA-S TABLET PO SCH (09:09)
[2021-01-17] MEDS: DOCUSATE SODIUM 100 MG CAP PO SCH (09:09)
== END 2021-01-17 09:49 | disposition home or self-care (01) | DRG 713 ==
LOC: OR 07:45 → PACU V 12:04 → MED/SURG 12:57
PROVIDERS: ADMIT Internal Medicine; ATTEND Internal Medicine
PROC: BT141ZZ Fluoroscopy of Kidneys, Ureters and Bladder using Low Osmolar Contrast (ICD-10-PCS; 2021-01-13)
PROC: 0T7D8ZZ Dilation of Urethra, Via Natural or Artificial Opening Endoscopic (ICD-10-PCS; principal; 2021-01-13 10:04)
PROC: 0V508ZZ Destruction of Prostate, Via Natural or Artificial Opening Endoscopic (ICD-10-PCS; 2021-01-13 10:04)
DX: N40.1 Benign prostatic hyperplasia with lower urinary tract symptoms (principal); N13.8 Other obstructive and reflux uropathy; N39.0 Urinary tract infection, site not specified; R39.14 Feeling of incomplete bladder emptying; R39.15 Urgency of urination; R33.8 Other retention of urine; N35.919 Unspecified urethral stricture, male, unspecified site; N32.3 Diverticulum of bladder; R39.12 Poor urinary stream; R35.1 Nocturia; E66.9 Obesity, unspecified; I86.1 Scrotal varices; I10 Essential (primary) hypertension; Z68.23 Body mass index [BMI] 23.0-23.9, adult; Z88.5 Allergy status to narcotic agent; Z88.0 Allergy status to penicillin; Z88.2 Allergy status to sulfonamides; Z88.8 Allergy status to other drugs, medicaments and biological substances; I25.10 Atherosclerotic heart disease of native coronary artery without angina pectoris; Z95.5 Presence of coronary angioplasty implant and graft; Z20.822 Contact with and (suspected) exposure to COVID-19
CPT/HCPCS: 36415; 71046; 74420; 80048; 83735; 85025; 93005; 94799; C1758; J1100; J1580; J1940; J1956; J2001; J2405; J3010; J7030; U0002

== ENCOUNTER 2021-01-30 23:11 | Inpatient (IN) | payer MEDICARE ==
[~2021-01-30] VITALS: Ht 182.9 cm; Wt 81.7 kg
[~2021-01-30 23:11] MED LIST changes: +LEVOFLOXACIN250 MG PO
[2021-01-31 00:06] LABS: BASOPHILS % 0.4 % (0.0-1.0); EOSINOPHILS # (AUTO) 0.3 (0.0-0.4); EOSINOPHILS % 5.6 % (0.0-6.0); HEMATOCRIT 36.3 % (38.2-49.6); LYMPHOCYTES # (AUTO) 0.9 (1.0-3.2); LYMPHOCYTES % 16.5 % (18.0-39.1); MEAN CORPUSCULAR HEMOGLOBIN 33.2 pg (28-32); MEAN CORPUSCULAR HGB CONC 33.1 g/dL (31-35); MEAN CORPUSCULAR VOLUME 100.6 fL (81-99); MONOCYTES # (AUTO) 0.8 (0.2-0.8); MONOCYTES % 15.5 % (4.4-11.3); NEUTROPHILS # (AUTO) 3.2 (2.1-6.9); NEUTROPHILS % 61.8 % (38.7-80.0); PLATELET COUNT 317 x10e3/uL (140-360); RED BLOOD COUNT 3.61 x10e6/uL (4.3-5.7); RED CELL DISTRIBUTION WIDTH 12.5 % (11.7-14.4)
[2021-01-31 00:07] LABS: CLARITY,URINE CLOUDY (CLEAR); COLOR,URINE YELLOW (YELLOW)
[2021-01-31 00:08] LABS: KETONES,URINE NEGATIVE (NEGATIVE); LEUKOCYTE ESTERASE ,URINE 1+ (NEGATIVE); NITRITE,URINE NEGATIVE (NEGATIVE); PROTEIN,URINE DIPSTICK TRACE (NEGATIVE); URINE UROBILINOGEN 0.2 mg/dL (0.2 - 1)
[2021-01-31 00:12] LABS: INR 0.93; PROTHROMBIN TIME 13.2 seconds (11.9-14.5)
[2021-01-31 00:13] LABS: PARTIAL THROMBOPLASTIN TIME 31.3 seconds (23.8-35.5)
[2021-01-31 00:22] LABS: ALBUMIN 3.2 g/dL (3.5-5.0); ALBUMIN/GLOBULIN RATIO 1.1 (0.8-2.0); ANION GAP 13.4 mmol/L (8-16); CREATININE, SERUM 0.83 mg/dL (0.72-1.25); POTASSIUM 4.4 mmol/L (3.5-5.1)
[2021-01-31 00:23] LABS: CALCIUM 9.6 mg/dL (8.4-10.2)
[2021-01-31 00:26] LABS: BACTERIA,URINE MODERATE /HPF; EPITHELIAL CELLS,URINE FEW /LPF; RBC,URINE >50 /HPF (0-5); WBC,URINE (MAN) >50 /HPF (0-5)
[2021-01-31 00:28] LABS: CREATINE KINASE MB 0.7 ng/mL (0-5.0)
[2021-01-31] MEDS ORDERED: CEFTRIAXONE 1 GM in SODIUM CHLORIDE 0.9% 50ML 50 ML IV ONE (01:00)
[2021-01-31 04:00] VITALS: BP 150/79
[2021-01-31 10:00] VITALS: BP 124/58
[2021-01-31] MEDS ORDERED: POTASSIUM CHLORIDE 10MEQ EA PO ONE (11:00)
[2021-01-31] MEDS: CEFEPIME 1 GM in SODIUM CHLORIDE 0.9% 50ML 50 ML IV SCH ×2 (11:19→20:28)
[2021-01-31] MEDS: FUROSEMIDE INJ 10 MG/ML 4 ML VIAL IV SCH ×2 (11:19→14:00)
[2021-01-31] MEDS: POTASSIUM CHLORIDE 10MEQ EA PO SCH (11:20)
[2021-01-31] MEDS ORDERED: SODIUM CHLORIDE 0.9% 250ML 250 ML ONE (11:36)
[2021-01-31 14:21] VITALS: BP 129/90
[2021-01-31] MEDS: ENOXAPARIN SOD INJ 40 MG/0.4 ML SYR SC SCH (16:27)
[2021-01-31 20:00] VITALS: BP 115/70
[2021-01-31 21:44] VITALS: BP 115/70
[2021-01-31 21:46] VITALS: BP 115/70
[2021-02-01] VITALS (11 sets, daily range): BP systolic 107–136; BP diastolic 57–70
[2021-02-01 06:28] LABS: BASOPHILS % 0.4 % (0.0-1.0); EOSINOPHILS # (AUTO) 0.2 (0.0-0.4); HEMATOCRIT 36.2 % (38.2-49.6); HEMOGLOBIN 12.1 g/dL (14.0-18.0); LYMPHOCYTES # (AUTO) 0.6 (1.0-3.2); LYMPHOCYTES % 13.9 % (18.0-39.1); MEAN CORPUSCULAR HEMOGLOBIN 32.8 pg (28-32); MEAN CORPUSCULAR HGB CONC 33.4 g/dL (31-35); MEAN CORPUSCULAR VOLUME 98.1 fL (81-99); MONOCYTES # (AUTO) 0.8 (0.2-0.8); MONOCYTES % 17.1 % (4.4-11.3); NEUTROPHILS # (AUTO) 2.9 (2.1-6.9); NEUTROPHILS % 63.2 % (38.7-80.0); PLATELET COUNT 317 x10e3/uL (140-360); RED BLOOD COUNT 3.69 x10e6/uL (4.3-5.7); RED CELL DISTRIBUTION WIDTH 12.4 % (11.7-14.4)
[2021-02-01 06:56] LABS: ANION GAP 12.8 mmol/L (8-16); CALCIUM 9.8 mg/dL (8.4-10.2); CREATININE, SERUM 0.98 mg/dL (0.72-1.25); POTASSIUM 3.8 mmol/L (3.5-5.1)
[2021-02-01 07:16] LABS: MAGNESIUM 2.1 MG/DL (1.3-2.1)
[2021-02-01 07:42] LABS: THYROID STIMULATING HORMONE 1.43 uIU/mL (0.350-4.940)
[2021-02-01] MEDS: POTASSIUM CHLORIDE 10MEQ EA PO SCH ×2 (09:15→12:59)
[2021-02-01] MEDS: FUROSEMIDE INJ 10 MG/ML 4 ML VIAL IV SCH ×2 (09:15→12:59)
[2021-02-01] MEDS: CEFEPIME 1 GM in SODIUM CHLORIDE 0.9% 50ML 50 ML IV SCH ×2 (09:30→20:55)
[2021-02-01] MEDS: ENOXAPARIN SOD INJ 40 MG/0.4 ML SYR SC SCH (17:11)
[2021-02-01] MEDS: ACETAMINOPHEN 325 MG TAB PO PRN (21:10)
[2021-02-02] VITALS (8 sets, daily range): BP systolic 99–117; BP diastolic 49–68
[2021-02-02] MEDS: ACETAMINOPHEN 325 MG TAB PO PRN (05:18)
[2021-02-02 06:49] LABS: ANION GAP 12.8 mmol/L (8-16); CALCIUM 9.2 mg/dL (8.4-10.2); CREATININE, SERUM 0.99 mg/dL (0.72-1.25); POTASSIUM 3.8 mmol/L (3.5-5.1)
[2021-02-02] MEDS: FUROSEMIDE INJ 10 MG/ML 4 ML VIAL IV SCH ×2 (07:45→12:00)
[2021-02-02] MEDS: POTASSIUM CHLORIDE 10MEQ EA PO SCH ×2 (07:47→12:00)
[2021-02-02] MEDS: CEFEPIME 1 GM in SODIUM CHLORIDE 0.9% 50ML 50 ML IV SCH (08:01)
[2021-02-02] MEDS ORDERED: Vancomycin IV 1 GM in SODIUM CHLORIDE 0.9% 250ML 250 ML IV ONE (09:15)
== END 2021-02-02 12:35 | disposition home or self-care (01) | DRG 699 ==
LOC: ER 23:19 → ERHOLD 01-31 00:43 → MED/SURG3 01-31 02:52
PROVIDERS: ADMIT Internal Medicine; ATTEND Internal Medicine
DX: N99.89 Other postprocedural complications and disorders of genitourinary system (principal); E87.1 Hypo-osmolality and hyponatremia; I31.3 Pericardial effusion (noninflammatory); Z20.822 Contact with and (suspected) exposure to COVID-19; Z88.0 Allergy status to penicillin; Z88.2 Allergy status to sulfonamides; R60.1 Generalized edema; I07.1 Rheumatic tricuspid insufficiency; N41.9 Inflammatory disease of prostate, unspecified; I83.93 Asymptomatic varicose veins of bilateral lower extremities; B95.8 Unspecified staphylococcus as the cause of diseases classified elsewhere; I25.10 Atherosclerotic heart disease of native coronary artery without angina pectoris; N40.0 Benign prostatic hyperplasia without lower urinary tract symptoms
CPT/HCPCS: 36415; 71045; 80048; 80053; 81001; 82550; 82553; 83735; 83880; 84443; 84484; 85025; 85610; 85730; 87086; 87186; 93005; 93306; 93970; 99251; 99284; J0692; J0696; J1650; J1940; J3370; J7050; U0002

== ENCOUNTER → 2021-10-16 | Day surgery (SDC) | payer MEDICARE ==
[2021-10-12 11:00] LABS: BASOPHILS % 0.2 % (0.0-1.0); EOSINOPHILS # (AUTO) 0.2 (0.0-0.4); EOSINOPHILS % 2.8 % (0.0-6.0); HEMATOCRIT 41.2 % (38.2-49.6); HEMOGLOBIN 13.5 g/dL (14.0-18.0); LYMPHOCYTES # (AUTO) 0.5 (1.0-3.2); LYMPHOCYTES % 9.6 % (18.0-39.1); MEAN CORPUSCULAR HEMOGLOBIN 33.7 pg (28-32); MEAN CORPUSCULAR HGB CONC 32.8 g/dL (31-35); MEAN CORPUSCULAR VOLUME 102.7 fL (81-99); MONOCYTES # (AUTO) 0.7 (0.2-0.8); MONOCYTES % 12.3 % (4.4-11.3); NEUTROPHILS # (AUTO) 4.2 (2.1-6.9); NEUTROPHILS % 75.1 % (38.7-80.0); PLATELET COUNT 257 x10e3/uL (140-360); RED BLOOD COUNT 4.01 x10e6/uL (4.3-5.7); RED CELL DISTRIBUTION WIDTH 12.8 % (11.7-14.4)
[2021-10-12 11:17] LABS: ANION GAP 9.5 mmol/L (8-16); CALCIUM 9.8 mg/dL (8.4-10.2); CREATININE, SERUM 0.92 mg/dL (0.72-1.25); POTASSIUM 4.5 mmol/L (3.5-5.1)
[~2021-10-16] MED LIST changes: +ASPIRIN81 MG PO; +B&O 60MG R/S 60 MG SUPP PR ONE; +DEXAMETHASONE SOD PHOS INJ 4 MG/ML SDV ONE; +EPHEDRINE SULFATE INJ 50 MG/ML VIAL ONE; +FENTANYL CITRATE/PF 100MCG/2 ML INJ ONE; +GENTAMICIN 80MG/NS 100 ML 200 ML IV ONE; +IOPAMIDOL 610MG/1ML 300 MG/ML VIAL IV ONE; +LIDOCAINE HCL 2% LOCAL INJ 5 ML SDV VIAL INJ ONE; +OMEGA 3 FISH O1 EACH PO; +ONDANSETRON HCL INJ 2MG/ML 2ML 2 MG/ML VIAL ONE; +PHENAZOPYRIDINE HCL 100 MG TAB ONE; +POVIDONE IODINE 0.05% 0.05 % ML PO ONE; +PROPOFOL IV EMULSION 10 MG/ML 20 ML VIAL ONE; +SEVOFLURANE INHAL SOLN 250 ML PEN BTL ONE; +VITAMIN C1000 MG PO; +ZINC PO
[2021-10-16 09:00] VITALS: BP 143/73
== END | disposition home or self-care (01) ==
LOC: OR 08:50
PROVIDERS: ATTEND Urology
DX: N21.0 Calculus in bladder (principal); N35.912 Unspecified bulbous urethral stricture, male; N32.89 Other specified disorders of bladder; Z98.890 Other specified postprocedural states; G47.33 Obstructive sleep apnea (adult) (pediatric); I25.10 Atherosclerotic heart disease of native coronary artery without angina pectoris; E78.5 Hyperlipidemia, unspecified; I11.0 Hypertensive heart disease with heart failure; I50.9 Heart failure, unspecified; I44.0 Atrioventricular block, first degree; R91.1 Solitary pulmonary nodule; Z01.810 Encounter for preprocedural cardiovascular examination; Z01.812 Encounter for preprocedural laboratory examination; Z01.818 Encounter for other preprocedural examination; Z20.822 Contact with and (suspected) exposure to COVID-19; Z79.82 Long term (current) use of aspirin; Z95.5 Presence of coronary angioplasty implant and graft; Z87.891 Personal history of nicotine dependence
CPT/HCPCS: 0223U; 36415; 52005; 52317; 71046; 74420; 80048; 84550; 85025; 88300; C1758; C1766; J1100; J1580; J2001; J2405; J2704; J3010; Q9967